=== PATIENT | female | born 1975 | race Caucasian/White ===

== ENCOUNTER 2016-10-29 15:24 | Emergency (ER) | payer MEDICAID ==
[~2016-10-29] VITALS: Ht 165.1 cm; Wt 109.0 kg
[~2016-10-29 15:24] MED LIST: ALBU2.5V NPPB; ALBU8.5H3 INH; BUTA1CAP30 PO; FLUT16SP NAS; FLUT1DIS3 INH; IBUP800T PO; KETO60VI23 IM; LEVO750T26 PO; LORA10TA75 PO; MONT10TA6 PO; NAPR500T3 PO; POLY17PO5 PO; PRED5TAB PO; PROC5TAB40 PO; PROM12.55 PO
[2016-10-29 15:25] VITALS: BP 113/80
[2016-10-29] MEDS ORDERED: IBUPROFEN 200 MG TABLET ONE (15:38)
[2016-10-29] MEDS ORDERED: IBUPROFEN 200 MG TABLET PO ONE (16:00)
== END 2016-10-29 16:13 | disposition home or self-care (01) ==
LOC: ED 15:39
DX: S63.511A Sprain of carpal joint of right wrist, initial encounter (principal); S60.221A Contusion of right hand, initial encounter; F17.200 Nicotine dependence, unspecified, uncomplicated; J45.909 Unspecified asthma, uncomplicated; Z88.0 Allergy status to penicillin; X58.XXXA Exposure to other specified factors, initial encounter; Y93.89 Activity, other specified; Y92.89 Other specified places as the place of occurrence of the external cause; Y99.8 Other external cause status
CPT/HCPCS: 29125

== ENCOUNTER 2016-10-31 12:05 | Emergency (ER) | payer MEDICAID ==
[~2016-10-31] VITALS: Ht 165.1 cm; Wt 110.0 kg
[2016-10-31 12:10] VITALS: BP 122/79
[2016-10-31] MEDS ORDERED: TOPI100T24 PO (12:52)
== END 2016-10-31 13:05 | disposition home or self-care (01) ==
LOC: ED 12:26
DX: S60.221A Contusion of right hand, initial encounter (principal); F17.200 Nicotine dependence, unspecified, uncomplicated; J45.909 Unspecified asthma, uncomplicated; M32.9 Systemic lupus erythematosus, unspecified; F12.10 Cannabis abuse, uncomplicated; Z85.41 Personal history of malignant neoplasm of cervix uteri; Z85.42 Personal history of malignant neoplasm of other parts of uterus; W22.8XXA Striking against or struck by other objects, initial encounter; Y93.89 Activity, other specified; Y92.488 Other paved roadways as the place of occurrence of the external cause; Y99.8 Other external cause status
CPT/HCPCS: 29125

== ENCOUNTER 2016-12-28 22:31 | Emergency (ER) | payer MEDICAID ==
[~2016-12-28] VITALS: Ht 165.1 cm; Wt 120.0 kg
[~2016-12-28 22:31] MED LIST changes: -ALBU8.5H3 INH; +ALBU8.5H8 INH; +IBUP-1223 PO; -IBUP800T PO; +TOPI100T24 PO
[2016-12-28] MEDS ORDERED: ALBUTEROL/IPRATROPIUM 2.5MG/0.5MG, 3 ML NPPB ONE (23:00)
[2016-12-28] MEDS ORDERED: ALBUTEROL/IPRATROPIUM 2.5MG/0.5MG, 3 ML ONE (23:25)
[2016-12-29 00:35] VITALS: BP 137/77
== END 2016-12-29 00:53 | disposition home or self-care (01) ==
LOC: ED 22:41
DX: J45.41 Moderate persistent asthma with (acute) exacerbation (principal); F17.210 Nicotine dependence, cigarettes, uncomplicated; Z71.6 Tobacco abuse counseling
CPT/HCPCS: 71010; 93005; 94640; 99284; 99406; J7512; J7620

== ENCOUNTER 2017-02-15 22:05 | Emergency (ER) | payer MEDICAID ==
[~2017-02-15] VITALS: Ht 165.1 cm; Wt 104.0 kg
[2017-02-15 22:08] VITALS: BP 124/83
[2017-02-15] MEDS ORDERED: KETOROLAC 30 MG/1 ML ONE (22:49)
[2017-02-15] MEDS ORDERED: METOCLOPRAMIDE 5 MG/ML, 2ML ONE (22:49)
[2017-02-15] MEDS ORDERED: DIPHENHYDRAMINE 50 MG/ML, 1ML ONE (22:49)
[2017-02-15] MEDS ORDERED: DIPHENHYDRAMINE 50 MG/ML, 1ML IVPush ONE (23:00)
[2017-02-15] MEDS ORDERED: KETOROLAC 30 MG/1 ML IVPush ONE (23:00)
[2017-02-15] MEDS ORDERED: SODIUM CHLORIDE 0.9% 1,000ML IVBOLUS ONE (23:00)
[2017-02-15] MEDS ORDERED: METOCLOPRAMIDE 5 MG/ML, 2ML IVPush ONE (23:00)
== END 2017-02-16 00:32 | disposition home or self-care (01) ==
LOC: ED 02-16 00:26
DX: R51 Headache (principal); R11.2 Nausea with vomiting, unspecified
CPT/HCPCS: 96361; 96374; 96375; 99284; J1200; J1885; J2765; J7030

== ENCOUNTER 2017-02-24 16:51 | Emergency (ER) | payer MEDICAID ==
[~2017-02-24] VITALS: Ht 165.1 cm; Wt 103.5 kg
[~2017-02-24 16:51] MED LIST changes: -NAPR500T3 PO; +NAPR500T4 PO
[2017-02-24 16:52] VITALS: BP 115/77
== END 2017-02-24 18:58 | disposition home or self-care (01) ==
LOC: ED 18:55
DX: S89.92XA Unspecified injury of left lower leg, initial encounter (principal); G89.11 Acute pain due to trauma; J45.909 Unspecified asthma, uncomplicated; K21.9 Gastro-esophageal reflux disease without esophagitis; Z90.49 Acquired absence of other specified parts of digestive tract; Z90.710 Acquired absence of both cervix and uterus; Z88.0 Allergy status to penicillin; Z98.890 Other specified postprocedural states; X50.1XXA Overexertion from prolonged static or awkward postures, initial encounter; Y93.89 Activity, other specified; Y92.009 Unspecified place in unspecified non-institutional (private) residence as the place of occurrence of the external cause; Y99.8 Other external cause status
CPT/HCPCS: 29505

== ENCOUNTER 2018-01-31 12:59 | Emergency (ER) | payer MEDICAID ==
[~2018-01-31] VITALS: Ht 165.1 cm; Wt 95.8 kg
[~2018-01-31 12:59] MED LIST changes: +NAPR-685 PO; -NAPR500T4 PO
[2018-01-31 13:02] VITALS: BP 100/55
== END 2018-01-31 13:48 | disposition home or self-care (01) ==
LOC: ED 13:38
DX: L03.116 Cellulitis of left lower limb (principal); K21.9 Gastro-esophageal reflux disease without esophagitis; J45.909 Unspecified asthma, uncomplicated; Z90.49 Acquired absence of other specified parts of digestive tract; Z90.710 Acquired absence of both cervix and uterus; Z88.0 Allergy status to penicillin
CPT/HCPCS: 99283

== ENCOUNTER 2018-02-20 22:31 | Emergency (ER) | payer MEDICAID ==
[~2018-02-20] VITALS: Ht 165.1 cm; Wt 96.6 kg
[2018-02-20 22:33] VITALS: BP 102/67
== END 2018-02-21 00:37 | disposition home or self-care (01) ==
LOC: ED 22:45
DX: L03.313 Cellulitis of chest wall (principal); J45.909 Unspecified asthma, uncomplicated; K21.9 Gastro-esophageal reflux disease without esophagitis; Z90.49 Acquired absence of other specified parts of digestive tract; Z90.710 Acquired absence of both cervix and uterus; Z98.890 Other specified postprocedural states
CPT/HCPCS: 99283

== ENCOUNTER 2018-05-04 13:32 | Emergency (ER) | payer MEDICAID ==
[~2018-05-04] VITALS: Ht 165.1 cm; Wt 98.0 kg
[2018-05-04 13:53] VITALS: BP 107/75
--- NOTE | 2018-05-04 15:04 | NUR ---
PT'S CHART UP FOR RECHECK
== END 2018-05-04 15:56 | disposition home or self-care (01) ==
LOC: ED 14:55
DX: S46.912A Strain of unspecified muscle, fascia and tendon at shoulder and upper arm level, left arm, initial encounter (principal); K21.9 Gastro-esophageal reflux disease without esophagitis; J45.909 Unspecified asthma, uncomplicated; F17.200 Nicotine dependence, unspecified, uncomplicated; W19.XXXA Unspecified fall, initial encounter; Y93.89 Activity, other specified; Y92.89 Other specified places as the place of occurrence of the external cause; Y99.8 Other external cause status
CPT/HCPCS: 99283

== ENCOUNTER 2018-06-21 17:54 | Emergency (ER) | payer MEDICAID ==
[~2018-06-21] VITALS: Ht 165.1 cm; Wt 100.0 kg
[2018-06-21 17:57] VITALS: BP 115/45
[2018-06-21] MEDS ORDERED: HYDROcodone/APAP 5/325 TABLET ONE (18:46)
--- NOTE | 2018-06-21 18:50 | NUR ---
PT MEDICATED PER JUN. BRANNON WRAP APPLIED PER PA REQUEST.
[2018-06-21] MEDS ORDERED: HYDROcodone/APAP 5/325 TABLET PO ONE (19:00)
== END 2018-06-21 18:55 | disposition home or self-care (01) ==
LOC: ED 18:20
DX: S93.611A Sprain of tarsal ligament of right foot, initial encounter (principal); J45.909 Unspecified asthma, uncomplicated; K21.9 Gastro-esophageal reflux disease without esophagitis; Z90.49 Acquired absence of other specified parts of digestive tract; Z90.710 Acquired absence of both cervix and uterus; Z88.0 Allergy status to penicillin; X58.XXXA Exposure to other specified factors, initial encounter; Y93.89 Activity, other specified; Y92.89 Other specified places as the place of occurrence of the external cause; Y99.8 Other external cause status
CPT/HCPCS: 99283

== ENCOUNTER 2018-11-21 21:54 | Emergency (ER) | payer MEDICAID ==
[~2018-11-21] VITALS: Ht 165.1 cm; Wt 113.0 kg
[2018-11-21 21:56] VITALS: BP 129/81
== END 2018-11-21 23:16 | disposition home or self-care (01) ==
LOC: ED 22:51
DX: S93.524A Sprain of metatarsophalangeal joint of right lesser toe(s), initial encounter (principal); S93.514A Sprain of interphalangeal joint of right lesser toe(s), initial encounter; S90.121A Contusion of right lesser toe(s) without damage to nail, initial encounter; J45.909 Unspecified asthma, uncomplicated; K21.9 Gastro-esophageal reflux disease without esophagitis; X58.XXXA Exposure to other specified factors, initial encounter; Y93.89 Activity, other specified; Y92.89 Other specified places as the place of occurrence of the external cause; Y99.8 Other external cause status
CPT/HCPCS: 73630; 99283; Q0162

== ENCOUNTER 2020-09-23 22:32 | Emergency (ER) | payer MEDICAID ==
[~2020-09-23] VITALS: Ht 165.1 cm; Wt 130.0 kg
[~2020-09-23 22:32] MED LIST changes: +CHOL400C PO; -FLUT16SP NAS; +FLUT16SP24 NAS; +GABA300C10 PO; +MULT-508 PO; -PROM12.55 PO; +PROM12.57 PO
[2020-09-23] MEDS ORDERED: KETOROLAC 30 MG/1 ML IVPush ONE (23:30)
[2020-09-23] MEDS ORDERED: SODIUM CHLORIDE FLUSH 10ML SYR IVF ONE (23:30)
[2020-09-23] MEDS ORDERED: PROCHLORPERAZINE 5 MG/ML, 2ML IVPush ONE (23:30)
[2020-09-23] MEDS ORDERED: DIPHENHYDRAMINE 50 MG/ML, 1ML IVPush ONE (23:30)
--- NOTE | 2020-09-24 02:06 | NUR ---
PT CAME INTO ED THIS AM DUE TO A MIGRAINE ACCOMPANIED BY NAUSEA/LIGHT AND NOISE SENSITIVITY. PT ALSO REPORTS MEDIAL ASPECT OF RIGHT ANKLE HAS BEEN HURTING WHILE WALKING. PT REQUESTS PO MEDICATIONS RATHER THAN IV. PT REPORTS HX OF SIMILAR MIGRAINES. PT PLACED ON SPO2/BP MONITORING AT THIS TIME. WCTM. Patient is resting comfortably in bed. Bed in lowest, rails engaged, call light on lap. Vital Signs within normal limits. WCTM.
[2020-09-24 02:07] VITALS: BP 130/54
[2020-09-24] MEDS ORDERED: ONDANSETRON ODT 4 MG ONE (02:14)
[2020-09-24] MEDS ORDERED: IBUPROFEN 800 MG TABLET ONE (02:14)
[2020-09-24] MEDS ORDERED: DIPHENHYDRAMINE 25 MG CAPSULE ONE (02:14)
--- NOTE | 2020-09-24 02:19 | NUR ---
RN TO BS WITH PO MEDS RATHER THAN IV PER PT REQUEST AND ERP ORDER CHANGE, PT THEN REFUSING MEDICATIONS WHEN HANDED THEM STATING "YOU KNOW WHAT, IBUPROFEN DOESNT EVEN WORK. I TAKE THAT AT HOME WITH EXCEDRIN AND IT DOESNT HELP". RN THEN RE OFFERED IV MEDICATION INSTEAD FOR MIGRAINE. PT REFUSED STATES "I JUST WANT TO KNOW WHATS WRONG WITH MY FOOT SO I CAN GO HOME." PT NAD, Patient is resting comfortably in bed. Bed in lowest, rails engaged, call light on lap. Vital Signs within normal limits. WCTM.
[2020-09-24] MEDS ORDERED: DIPHENHYDRAMINE 25 MG CAPSULE PO ONE (02:30)
[2020-09-24] MEDS ORDERED: IBUPROFEN 800 MG TABLET PO ONE (02:30)
[2020-09-24] MEDS ORDERED: ONDANSETRON ODT 4 MG PO PRN (02:30)
[2020-09-24] MEDS ORDERED: ONDANSETRON 4 MG TABLET PO PRN (02:30)
--- NOTE | 2020-09-24 02:47 | NUR ---
AIR STIRRUP APPLIED. Patient given discharge instructions and they have confirmed that they understand the instructions. Patient ambulatory with steady gait. NAD, all questions answered appropriately, denies additional needs at this time. No personal belongings left in room after discharge.
--- NOTE | 2020-09-24 02:54 | NUR ---
PT REQUESTED RN TO DISCHARGE DESK STATING "THE DOCTOR SAID THEY WERE GIVING ME A MEDICATION TO GO HOME WITH AND ITS NOT EVEN ON HERE". RN SPOKE WITH ERP WHO STATES SHE OFFERED PT PRESCRIPTION AND PT DECLINED STATING IT DOESNT HELP HER. RN TOLD PT WE WOULD BE HAPPY TO ADD IT ON FOR HER, PT ANGRILY STATES "YOU KNOW WHAT ITS JUST FINE, WHATEVER".
== END 2020-09-24 02:49 | disposition home or self-care (01) ==
LOC: ED 09-24 02:15
DX: M25.571 Pain in right ankle and joints of right foot (principal); G43.909 Migraine, unspecified, not intractable, without status migrainosus; J45.909 Unspecified asthma, uncomplicated; K21.9 Gastro-esophageal reflux disease without esophagitis
CPT/HCPCS: 99284; Q0162; Q0163